=== PATIENT | female | born 1955 | race Caucasian/White ===

== ENCOUNTER 2018-05-18 19:03 | Emergency (ER) | payer OTHER ==
[~2018-05-18] VITALS: Ht 165.1 cm; Wt 81.7 kg
[2018-05-18] MEDS ORDERED: Zantac150 MG PO (19:42)
[2018-05-18] MEDS ORDERED: TRIA50 PO (19:42)
== END 2018-05-18 20:00 | disposition home or self-care (01) ==
LOC: ER 19:03
DX: G89.18 Other acute postprocedural pain (principal); M25.562 Pain in left knee; Z96.652 Presence of left artificial knee joint; Z87.891 Personal history of nicotine dependence; Z79.899 Other long term (current) drug therapy
CPT/HCPCS: 99283

== ENCOUNTER 2021-06-25 18:16 | Emergency (ER) | payer MEDICARE, OTHER ==
[~2021-06-25] VITALS: Ht 165.1 cm; Wt 81.7 kg
[~2021-06-25 18:16] MED LIST: TRIA50 PO; Zantac150 MG PO
[2021-06-25] MEDS ORDERED: Norco 5-325 Ta1 EACH PO (18:41)
== END 2021-06-25 18:52 | disposition home or self-care (01) ==
LOC: ER 18:16
DX: M54.50 Low back pain, unspecified (principal); G89.29 Other chronic pain; Z79.899 Other long term (current) drug therapy; Z87.891 Personal history of nicotine dependence
CPT/HCPCS: 99281; A9270

== ENCOUNTER → 2022-04-15 | Outpatient (CLI) | payer MEDICARE, OTHER ==
[~2022-04-15] MED LIST changes: +Norco 5-325 Ta1 EACH PO
== END | disposition home or self-care (01) ==
LOC: LAB SHORT 08:00
DX: R30.9 Painful micturition, unspecified (principal)
CPT/HCPCS: 87086

== ENCOUNTER 2024-03-22 06:24 | Day surgery (SDC) | payer MEDICARE, OTHER ==
--- NOTE | 2024-03-21 13:11 | NUR ---
ALLERGY/ADVERSE REACTION LIST UPDATED WITH PATIENT ON PHONE IN ANTICIPATION OF PLANNED SURGERY 03/22/24.
[~2024-03-22] VITALS: Ht 163 cm; Wt 95.2 kg
[2024-03-22] VITALS (18 sets, daily range): BP systolic 119–170; BP diastolic 62–97
[~2024-03-22 06:24] MED LIST changes: +Acetaminophen 500 MG Tab PO SCH; +CeFAZolin Sodium 2,000 MG in NS 100 ML IV SCH; +Chlorhexidine Mouth Care 15 ML UDC MT SCH; +Effexor Xr37.5 MG PO; +FURO40 PO; +HYDCHL25 PO; +LISI20 PO; +LYRICA PO; +Lactated Ringer's 1,000 ML IV SCH; +METO100 PO; +Norco 10-325 T1 EACH PO; +OMEP20ER PO; +ONDA4ODT MM; +Omeprazole 20 MG CapCR PO SCH; +OxyCODONE HCL 10 MG TABCR PO SCH; +PANT40 PO; +POTCHL20ER PO; +Ropivacaine 0.5% HCl/Pf 123.125 MG,EPINEPHrine HCL 0.25 MG,Ketorolac Tromethamine 15 MG... INFIL SCH
[2024-03-22] MEDS ORDERED: Tranexamic Acid 100 ML IV SCH (06:36)
[2024-03-22] MEDS ORDERED: FentaNYL Citrate 50 MCG/ML 2 ML Injection ONE ×2 (07:11→09:32)
[2024-03-22] MEDS ORDERED: Midazolam HCl 1MG / ML 2ML Vial ONE (07:11)
[2024-03-22] MEDS ORDERED: Lidocaine HCl 2% 20 ML MDV ONE (07:30)
[2024-03-22] MEDS ORDERED: propofoL 20 ML IV ONE (07:30)
[2024-03-22] MEDS ORDERED: Rocuronium Bromide 10 MG/ML 5ML Injection IV ONE (07:30)
--- NOTE | 2024-03-22 07:38 | NUR ---
History, Chart, Medications and Allergies reviewed before start of procedure. Patient up to Ambulate independently. Gait steady. Pre-Op teaching done. Pt verbalizes understanding. Patient confirms NPO status and agrees with scheduled surgery. Patient reports completing Chlorhexadine shower X1 prior to admission to hospital.
[2024-03-22] MEDS ORDERED: ePHEDrine Sulfate 50 MG/ML 1ML Injection ONE (08:03)
[2024-03-22] MEDS ORDERED: HYDROmorphone HCl/Pf 1MG SYR ONE ×3 (08:58→09:44)
[2024-03-22] MEDS ORDERED: Sugammadex Sodium 200 MG/2ML SDV (100 MG/ML) ONE (08:59)
[2024-03-22] MEDS ORDERED: Ondansetron HCl 2 MG / ML 2ML Vial ONE (09:02)
[2024-03-22] MEDS ORDERED: Dexamethasone Sod Phos 10 MG/ML 1ML VIAL ONE (09:02)
[2024-03-22] MEDS ORDERED: Ondansetron 4 MG SoluTab MM PRN (09:25)
[2024-03-22] MEDS ORDERED: Lactated Ringer's 1,000 ML IV SCH (09:30)
[2024-03-22] MEDS ORDERED: OxyCODONE HCL 5 MG TAB PO PRN ×2 (09:35→09:40)
[2024-03-22] MEDS ORDERED: Metoclopramide HCl 5MG / ML 2ML Vial IV PRN (09:35)
[2024-03-22] MEDS ORDERED: FLU VACC TS2024-25(6MOS UP)/PF 45 MCG/0.5 ML SYRINGE IM SCH (09:35)
[2024-03-22] MEDS ORDERED: Magnesium Hydroxide Conc 10 ML UDC PO PRN (09:35)
[2024-03-22] MEDS ORDERED: Ondansetron HCl 2 MG / ML 2ML Vial IV PRN (09:35)
[2024-03-22] MEDS ORDERED: DiphenhydrAMINE HCL 25 MG Cap PO PRN (09:40)
[2024-03-22] MEDS ORDERED: Prochlorperazine Edisylate 10 mg Vial IV PRN (09:40)
[2024-03-22] MEDS ORDERED: Promethazine HCl 25 MG Tab PO PRN (09:40)
[2024-03-22] MEDS ORDERED: Bisacodyl 10 MG Supp PR PRN (09:40)
--- NOTE | 2024-03-22 10:42 | NUR ---
PT ARRIVED TO THE ROOM AT 1020 FROM PACU. PT ALERT/ORIENTED AND PLEASANT UPON ARRIVAL. PT RATES HER PAIN AT 6/10 AND STATES 4/10 WOULD BE TOLERABLE. PT GIVEN OXYCODONE TO MANAGE PAIN, POLAR PACK IN PLACE. PT ABLE TO MOVE ALL EXTREMITIES. PT REPORTS SENSATION TO ALL EXTREMITIES. PT PROVIDED WITH AND EDUCATED TO USE THE CALL LIGHT. PT'S BELONGINGS ARE WITHIN REACH.
[2024-03-22] MEDS ORDERED: Ketorolac Tromethamine 15mg Vial IV SCH (12:00)
[2024-03-22] MEDS ORDERED: NS 250 ML IV PRN (14:55)
--- NOTE | 2024-03-22 15:58 | NUR ---
Pt. is awake in bed and welcomes my visit. Pt. is pleasant and quickly verbalized that she is a person of shaheen. Pt. displayed evidence of trust and engagement. Facilitated a life review and considered matters of shaheen and belief at length. Pt. verbalized prayer conscerns for a family member. Prayed with Pt. and also considered the needs of her family memeber. Pt. shook my hand and verbalized gratitude for the spiritual care visit.
[2024-03-22] MEDS ORDERED: CeFAZolin Sodium 2,000 MG in NS 100 ML IV SCH (16:00)
[2024-03-22] MEDS ORDERED: Acetaminophen 500 MG Tab PO SCH (16:00)
--- NOTE | 2024-03-22 18:03 | NUR ---
SHIFT SUMMARY PT IS POD#0 FROM [facility] [address] DR. BINGHAM. PAIN MANAGED WITH PO PAIN MEDICATION. PT WORKED WITH THERAPY TODAY BUT DID NOT CLEAR. PT TOLERATING PO AND VOIDING. VSS. PT GOT UP IN THE ROOM X1 WITHOUT ASSISTANCE BUT HAS OTHERWISE USED THE CALL LIGHT APPROPRIATELY. EDUCATION REGARDING CALL LIGHT USE AND FALL PREVENTION WAS REIFORCED, PT VERBALIZED UNDERSTANDING.
[2024-03-22] MEDS ORDERED: Docusate Sodium 100 MG Cap PO SCH (21:00)
[2024-03-22] MEDS ORDERED: Apixaban 5 MG Tab PO SCH (21:00)
[2024-03-23 05:23] VITALS: BP 146/63
--- NOTE | 2024-03-23 05:26 | NUR ---
SHIFT SUMMARY POD 1 R GLADIS PT ABLE TO REST DURING THE NIGHT. PAIN MANAGED PER EMAR. TOLERATING PO INTAKE, VOIDING. AQUACEL TO R HIP IS C/D/I. PT 1P SBA WITH FWW AND GB. DENIES N/T IN EXT'S. PLAN TO WORK WITH THERAPY TODAY AND THEN D/C HOME. VSS. NO OTHER CONCERNS AT THIS TIME, CALL LIGHT WITHIN REACH
[2024-03-23 07:47] VITALS: BP 131/73
[2024-03-23 08:13] LABS: BASOPHILS ABSOLUTE AUTO 0.02 K/mm3 (0.00-0.23); BASOPHILS PERCENT AUTO 0 % (0-2); EOSINOPHILS ABSOLUTE AUTO 0.01 K/mm3 (0.00-0.68); EOSINOPHILS PERCENT AUTO 0 % (0-6); Hematocrit 35.4 % (33.0-51.0); Hemoglobin 12.1 g/dL (11.5-16.0); IMMATURE GRAN ABSOLUTE AUTO 0.04 K/mm3 (0.00-0.10); IMMATURE GRAN PERCENT AUTO 0 % (0-1); LYMPHOCYTES ABSOLUTE AUTO 2.12 K/mm3 (0.84-5.20); LYMPHOCYTES PERCENT AUTO 21 % (21-46); MONOCYTES ABSOLUTE AUTO 0.96 K/mm3 (0.16-1.47); MONOCYTES PERCENT AUTO 9 % (4-13); Mean Corpuscular HGB 30.6 pg (26.0-34.0); Mean Corpuscular HGB Conc 34.2 g/dL (31.5-36.5); Mean Corpuscular Volume 90 fL (80-100); Mean Platelet Volume 9.3 fL (9.1-12.4); NEUTROPHILS ABSOLUTE AUTO 7.07 K/mm3 (1.96-9.15); NEUTROPHILS PERCENT AUTO 69 % (41-73); Platelet Count 189 K/mm3 (150-400); RDW Standard Deviation 42.6 fL (35.1-46.3); Red Blood Cell Count 3.95 M/mm3 (3.80-5.20); White Blood Cell Count 10.22 K/mm3 (4.00-11.30)
--- NOTE | 2024-03-23 08:35 | NUR ---
PT IS REFUSING MEDICATIONS AT THIS TIME. PT STS SHE HAS BEEN VOMITING X2 AFTER ODT ZOFRAN AND HAS GOTTEN UP BY HERSELF. PT STS "SORRY I DIDN'T CALL. I DIDN'T HAVE TIME." PT RE-EDUCATED ON IMPORTANCE OF CALLING FOR SBA AND PT VERBALIZES UNDERSTANDING OF THIS. PT REFUSING ALL MEDICATIONS AT THIS TIME, EVEN IV ANTI-EMETICS. PT STS "I DON'T WANT ANYTHING ELSE IN MY BODY RIGHT NOW." PT ENCOURAGED TO WORK WITH PHYSICAL THERAPY WHEN THEY COME IN AND PT STS THAT SHE WILL.
[2024-03-23 08:37] LABS: Calcium, Blood 9.1 mg/dL (8.5-10.1); Potassium, Blood 4.5 mmol/L (3.5-5.5)
--- NOTE | 2024-03-23 08:49 | NUR ---
PT TOLD PHYSICAL THERAPIST TO GIVE HER 30 MINUTES BEFORE SHE WILL BE READY AND FEELING BETTER TO DO THERAPY.
[2024-03-23] MEDS ORDERED: Potassium Chloride 20 MEQ TabCR PO SCH (09:00)
[2024-03-23] MEDS ORDERED: Lisinopril 20 MG Tab PO SCH (09:00)
[2024-03-23] MEDS ORDERED: Furosemide 40 MG Tab PO SCH (09:00)
[2024-03-23] MEDS ORDERED: Metoprolol Tartrate 50 MG Tab PO SCH (09:00)
--- NOTE | 2024-03-23 10:18 | NUR ---
PT WORKED WITH PT AND IS CLEARED. PT REFUSING ALL PO MEDICATION DUE TO INDIGESTION. PT EDUCATED ON REASON FOR MEDICATION AND IMPORTANT. PT VERBALIZES UNDERSTANDING BUT STILL INSISTENT ON NOT TAKING THEM. PT NOT WANTING ANY OTHER PRN MEDICATION OR WANTING TO REACH OUT TO DOCTOR. PT STS THAT SHE WILL TAKE HER ELIQUIS PRIOR TO LEAVING. STS SHE WANTS TO GO HOME AROUND 12PM TODAY. PT CURRENTLY LAYING IN BED ON HER L SIDE BECAUSE SHE IS MOST COMFORTABLE IN THAT POSITION. CALL LIGHT IN REACH.
--- NOTE | 2024-03-23 11:53 | NUR ---
PT NOT WANTING TO TAKE AM MEDICATIONS. PT REFUSING ANY OFFER OF PRN NAUSEA MEDICATION. PROVIDER MADE AWARE.
--- NOTE | 2024-03-23 13:30 | NUR ---
PT WAS ABLE AND WILLING TO TAKE HER DAILY ELIQUIS. PT NOT WANTING TO TAKE OTHER MORNING MEDICATIONS DUE TO INDIGESTION. PT TOOK ELIQUIS WITH SMALL BITES OF PUDDING. PT NOT WANTING TO D/C AT THIS POINT UNTIL SHE FEELS BETTER.
[2024-03-23] MEDS ORDERED: ELIQUIS2.5 MG PO (13:52)
[2024-03-23 15:03] VITALS: BP 164/95
--- NOTE | 2024-03-23 17:00 | NUR ---
DISCHARGE NOTE PT TO D/C HOME. ADEQUATE PAIN MEDICATION WITH PO MEDS. MARCEL PO INTAKE FAIR. CLEARED BY PHYSICAL THERAPY AND HAS VOIDED MULTIPLE TIMES. PT VERBALIZES UNDERSTANDING OF D/C INSTRUCTIONS. F/U WITH [facility] SCHEDULED. ESCORTED TO LOBBY VIA WHEELCHAIR. DAUGHTER TO GIVE RIDE HOME.
== END 2024-03-23 17:20 | disposition home or self-care (01) ==
LOC: ORSCMMR 06:24 → ORD 07:30 → ORSCMMR 07:30 → ORD 09:15 → ORSCMMR 09:15 → SURS 10:17 → ORSCMMR 03-23 17:20
PROVIDERS: Orthopaedic Surgery
PROC: 0SR90JZ Replacement of Right Hip Joint with Synthetic Substitute, Open Approach (ICD-10-PCS; principal; 2024-03-22 07:30)
DX: M16.11 Unilateral primary osteoarthritis, right hip (principal); I10 Essential (primary) hypertension; Z96.652 Presence of left artificial knee joint; Z87.891 Personal history of nicotine dependence; Z79.899 Other long term (current) drug therapy; K21.9 Gastro-esophageal reflux disease without esophagitis; E66.9 Obesity, unspecified; Z68.35 Body mass index [BMI] 35.0-35.9, adult
CPT/HCPCS: 36415; 72170; 80048; 85025; 97110; 97116; 97162; 97530; A6010; A9270; C1713; C1776; J0171; J0690; J0735; J1100; J1171; J1885; J2250; J2405; J2704; J2795; J3010; J7050; J7120

== ENCOUNTER 2024-04-11 17:37 | Inpatient (IN) | payer MEDICARE, OTHER ==
[~2024-04-11] VITALS: Ht 165.1 cm; Wt 96.0 kg
[~2024-04-11 17:37] MED LIST changes: -Acetaminophen 500 MG Tab PO SCH; -CeFAZolin Sodium 2,000 MG in NS 100 ML IV SCH; -Chlorhexidine Mouth Care 15 ML UDC MT SCH; +ELIQUIS2.5 MG PO; -Lactated Ringer's 1,000 ML IV SCH; -Omeprazole 20 MG CapCR PO SCH; -OxyCODONE HCL 10 MG TABCR PO SCH; -Ropivacaine 0.5% HCl/Pf 123.125 MG,EPINEPHrine HCL 0.25 MG,Ketorolac Tromethamine 15 MG... INFIL SCH
[2024-04-11 17:55] VITALS: BP 157/78
--- NOTE | 2024-04-11 17:56 | NUR ---
PT ARRIVES TO RM 222 VIA WC. PT DIRECT ADMIT BY DR BINGHAM. PT HAD R GLADIS ELECTIVE SURGERY EARLIER THIS MONTH. PT WAS GETTING INTO TAXI AFTER GOING TO PHYSICAL THERAPY AND FELT A "POP" SOUND IN HER R HIP. YESTERDAY, SHE FOLLOWED-UP WITH [facility] WITH OUTPATIENT XRAY AND CT SCAN, AND WAS SENT HERE FOR FURTHER TREATMENT. PT STS HER R HIP IS "CRACKED." PT A/OX4, PAIN 11/24. CALL LIGHT IN REACH.
[2024-04-11] MEDS ORDERED: Ondansetron 4 MG SoluTab SL PRN (18:40)
[2024-04-11] MEDS ORDERED: HYDROcodone 5-APAP 325 TAB PO PRN (18:40)
[2024-04-11 18:42] LABS: BASOPHILS ABSOLUTE AUTO 0.02 K/mm3 (0.00-0.23); BASOPHILS PERCENT AUTO 0 % (0-2); EOSINOPHILS ABSOLUTE AUTO 0.14 K/mm3 (0.00-0.68); EOSINOPHILS PERCENT AUTO 3 % (0-6); Hematocrit 34.6 % (33.0-51.0); Hemoglobin 11.3 g/dL (11.5-16.0); IMMATURE GRAN ABSOLUTE AUTO 0.02 K/mm3 (0.00-0.10); IMMATURE GRAN PERCENT AUTO 0 % (0-1); LYMPHOCYTES ABSOLUTE AUTO 1.91 K/mm3 (0.84-5.20); LYMPHOCYTES PERCENT AUTO 39 % (21-46); MONOCYTES ABSOLUTE AUTO 0.45 K/mm3 (0.16-1.47); MONOCYTES PERCENT AUTO 9 % (4-13); Mean Corpuscular HGB 29.9 pg (26.0-34.0); Mean Corpuscular HGB Conc 32.7 g/dL (31.5-36.5); Mean Corpuscular Volume 92 fL (80-100); Mean Platelet Volume 8.8 fL (9.1-12.4); NEUTROPHILS ABSOLUTE AUTO 2.37 K/mm3 (1.96-9.15); NEUTROPHILS PERCENT AUTO 48 % (41-73); Platelet Count 297 K/mm3 (150-400); RDW Coefficient Variation 13.2 % (11.7-14.2); RDW Standard Deviation 44.5 fL (35.1-46.3); Red Blood Cell Count 3.78 M/mm3 (3.80-5.20); White Blood Cell Count 4.91 K/mm3 (4.00-11.30)
[2024-04-11 19:04] LABS: Bun/Creatinine Ratio 27.2 (12.0-20.0); Calcium, Blood 9.2 mg/dL (8.5-10.1); Creatinine, Blood 0.85 mg/dL (0.40-1.00); Potassium, Blood 3.9 mmol/L (3.5-5.5)
[2024-04-11 19:42] VITALS: BP 171/84
[2024-04-12] VITALS (18 sets, daily range): BP systolic 122–180; BP diastolic 57–87
[2024-04-12] MEDS ORDERED: HYDROcodone 5-APAP 325 TAB PO PRN ×2 (00:05→12:50)
--- NOTE | 2024-04-12 04:31 | NUR ---
SHIFT SUMMARY S/P R HIP FX. NO ACUTE CHANGES OVERNIGHT. VSS. NPO. VOIDING. PT REPORTS PAIN TOLERABLE, MEDICATED PER EMAR. PT NWB ON RLE, PT MINIMALLY COMPLIANT c AMBULATION ORDERS. ANTICIPATED SURGERY LATER TODAY. CALL LIGHT IN REACH, BED IN LOWEST POSITION, WILL REPORT TO DAY RN.
[2024-04-12] MEDS ORDERED: Pantoprazole Sodium 40 MG Tab PO SCH (06:00)
[2024-04-12] MEDS ORDERED: Metoprolol Succinate 50 MG TABCR PO SCH (09:00)
[2024-04-12] MEDS ORDERED: Lisinopril 20 MG Tab PO SCH (09:00)
[2024-04-12] MEDS ORDERED: Furosemide 40 MG Tab PO PRN (12:35)
[2024-04-12] MEDS ORDERED: Ondansetron HCl 2 MG / ML 2ML Vial IV PRN (12:40)
[2024-04-12] MEDS ORDERED: Metoclopramide HCl 5MG / ML 2ML Vial IV PRN (12:40)
[2024-04-12] MEDS ORDERED: Magnesium Hydroxide Conc 10 ML UDC PO PRN (12:45)
[2024-04-12] MEDS ORDERED: DiphenhydrAMINE HCL 25 MG Cap PO PRN (12:45)
[2024-04-12] MEDS ORDERED: Promethazine HCl 25 MG Tab PO PRN (12:45)
[2024-04-12] MEDS ORDERED: TraMADol HCl 50 MG Tab PO PRN (12:45)
[2024-04-12] MEDS ORDERED: Lactated Ringer's 1,000 ML IV SCH ×2 (12:45→12:55)
[2024-04-12] MEDS ORDERED: FLU VACC TS2024-25(6MOS UP)/PF 45 MCG/0.5 ML SYRINGE IM SCH (12:45)
[2024-04-12] MEDS ORDERED: Bisacodyl 10 MG Supp PR PRN (12:50)
[2024-04-12] MEDS ORDERED: Prochlorperazine Edisylate 10 mg Vial IV PRN (12:50)
[2024-04-12] MEDS ORDERED: OxyCODONE HCL 5 MG TAB PO PRN ×2 (12:50)
[2024-04-12] MEDS ORDERED: Tranexamic Acid 1,000 MG in NS 100 ML IV SCH (12:55)
[2024-04-12] MEDS ORDERED: Ropivacaine 0.5% HCl/Pf 123.125 MG,EPINEPHrine HCL 0.25 MG,Ketorolac Tromethamine 15 MG... INFIL SCH (13:05)
[2024-04-12] MEDS ORDERED: CeFAZolin Sodium 2,000 MG in NS 100 ML IV SCH ×2 (13:25→13:40)
[2024-04-12] MEDS ORDERED: Cefazolin 2000MG/Dextrose,ISO 50 ML IV PRN (13:35)
--- NOTE | 2024-04-12 14:20 | NUR ---
PT TAKEN TO DAY SURGERY AT THIS TIME.
--- NOTE | 2024-04-12 14:41 | NUR ---
IV SITE RIGHT WRIST DRESSING D&I/IVF ATTACHED/PATENT.
[2024-04-12] MEDS ORDERED: CeFAZolin Sodium 2,000 MG VIAL ONE (14:45)
[2024-04-12] MEDS ORDERED: Famotidine 10 MG/ML 2ML Vial IV ONE (15:40)
[2024-04-12] MEDS ORDERED: FentaNYL Citrate 50 MCG/ML 2 ML Injection ONE ×2 (15:44→19:40)
[2024-04-12] MEDS ORDERED: propofoL 20 ML IV ONE (15:44)
[2024-04-12] MEDS ORDERED: Rocuronium Bromide 10 MG/ML 5ML Injection IV ONE (15:46)
[2024-04-12] MEDS ORDERED: Morphine Sulfate/PF 1 MG/ML 10MLVIAL ONE (15:46)
[2024-04-12] MEDS ORDERED: Ondansetron HCl 2 MG / ML 2ML Vial ONE (15:50)
[2024-04-12] MEDS ORDERED: Acetaminophen 500 MG Tab PO SCH (16:00)
[2024-04-12] MEDS ORDERED: Albuterol 2.5 MG/3 ML VIAL INH PRN (16:00)
[2024-04-12] MEDS ORDERED: Morphine Sulfate 4 MG/1 ML Injection IV PRN (16:05)
[2024-04-12] MEDS ORDERED: FentaNYL Citrate 50 MCG/ML 2 ML Injection IV PRN (16:05)
[2024-04-12] MEDS ORDERED: Droperidol 5 mg/2 ml Vial IV PRN (16:05)
[2024-04-12] MEDS ORDERED: ePHEDrine Sulfate 50 MG/ML 1ML Injection ONE (16:30)
[2024-04-12] MEDS ORDERED: Phenylephrine HCl 100 MCG/ML-NS 10MLSYR (1MG/10ML) ONE (17:08)
[2024-04-12] MEDS ORDERED: Sugammadex Sodium 200 MG/2ML SDV (100 MG/ML) ONE (18:04)
[2024-04-12] MEDS ORDERED: Morphine Sulfate 4 MG/1 ML Injection ONE ×2 (19:04→19:12)
--- NOTE | 2024-04-12 20:10 | NUR ---
ARRIVAL TO UNIT PT ARRIVED TO UNIT FROM PACU VIA BED. VSS, O2 SAT >90% ON 2L VIA NC. TOLERATING MIN PO INPUT, DENIES N/V. MAJOR DRESSING TO R HIP C/D/I, POLAR PACK IN USE. PT REPORTS PAIN TOLERABLE, HEEL FINISHER REPORTS PT INCREASINGLY PAINFUL POST-OP, MEDICATED PER EMAR. PT REPORTS "THE SENSATION LIKE I NEED TO PEE" BUT DENIES AMBULATION AT THIS TIME R/T PAIN. PUREWICK PLACED PER PT REQUEST. AWAITING FIRST POST-OP VOID/AMB. ORIENTED TO UNIT, CALL LIGHT IN REACH.
[2024-04-12] MEDS ORDERED: Docusate Sodium 100 MG Cap PO SCH (21:00)
[2024-04-13] MEDS ORDERED: CeFAZolin Sodium 2,000 MG in NS 100 ML IV SCH
[2024-04-13 03:33] VITALS: BP 128/60
[2024-04-13 05:20] LABS: BASOPHILS ABSOLUTE AUTO 0.01 K/mm3 (0.00-0.23); BASOPHILS PERCENT AUTO 0 % (0-2); EOSINOPHILS ABSOLUTE AUTO 0.07 K/mm3 (0.00-0.68); EOSINOPHILS PERCENT AUTO 1 % (0-6); IMMATURE GRAN ABSOLUTE AUTO 0.03 K/mm3 (0.00-0.10); IMMATURE GRAN PERCENT AUTO 1 % (0-1); LYMPHOCYTES ABSOLUTE AUTO 1.21 K/mm3 (0.84-5.20); LYMPHOCYTES PERCENT AUTO 20 % (21-46); MONOCYTES PERCENT AUTO 8 % (4-13); Mean Corpuscular HGB 29.7 pg (26.0-34.0); Mean Corpuscular HGB Conc 32.1 g/dL (31.5-36.5); Mean Corpuscular Volume 92 fL (80-100); Mean Platelet Volume 8.9 fL (9.1-12.4); NEUTROPHILS ABSOLUTE AUTO 4.34 K/mm3 (1.96-9.15); NEUTROPHILS PERCENT AUTO 71 % (41-73); Platelet Count 235 K/mm3 (150-400); RDW Coefficient Variation 13.3 % (11.7-14.2); RDW Standard Deviation 45.1 fL (35.1-46.3); Red Blood Cell Count 3.03 M/mm3 (3.80-5.20); White Blood Cell Count 6.16 K/mm3 (4.00-11.30)
[2024-04-13 05:42] LABS: Bun/Creatinine Ratio 23.7 (12.0-20.0); Calcium, Blood 8.1 mg/dL (8.5-10.1); Creatinine, Blood 0.8 mg/dL (0.40-1.00); Potassium, Blood 4.3 mmol/L (3.5-5.5)
--- NOTE | 2024-04-13 06:08 | NUR ---
SHIFT SUMMARY POD 1 R ORIF. NO ACUTE CHANGES OVERNIGHT. VSS, CONT BIOX IN USE. TOLERATING MIN ORALS. AMBULATES USING FWW c GB & 1 PERSON ASSIST TO STAND/PIVOT TO BSC. MIN URINE OUTPUT. PUREWICK & ATTENS IN PLACE PER PT REQUEST. IV ABX/FLUIDS INFUSING PER EMAR. PT REPORTS INCREASED PAIN, POLAR PACK IN USE, MEDICATED PER EMAR. MAJOR DRESSING C/D/I, FUNCTIONING PROPERLY. ANTICIPATED TO WORK c PHYSCIAL THERAPY. D/C SNF VS . PT RESTING IN BED. CALL LIGHT IN REACH, WILL REPORT TO DAY RN.
[2024-04-13 07:31] VITALS: BP 117/51
[2024-04-13] MEDS ORDERED: Apixaban 5 MG Tab PO SCH (09:00)
[2024-04-13] MEDS ORDERED: Clindamycin HCl 150 MG Cap PO SCH (09:00)
[2024-04-13 14:11] VITALS: BP 143/66
--- NOTE | 2024-04-13 16:39 | NUR ---
pt. is awake in be and displays evidence of acute pain. Pt. verbalizes that she recognizes this chaplian from a previous visit. Facilitate a short life review and pray for the Pt. Pt. verbalized gratitude for the spiritual care visit. This synthetic staple extruder reported Pts. pain to the staff.
--- NOTE | 2024-04-13 17:53 | NUR ---
SHIFT SUMMARY PT IS POD1 FOR R HIP ORIF, MAJOR DRAIN C/D/I. VSS. PT REPORTS HIGH PAIN SCORE AFTER BEING MEDICATED W/ PAIN MEDS PER EMAR. CRYO APPLIED TO R HIP AND REPOSITIONED PT FOR COMFORT. CAP REFILL IN R TOES 2 SECS, PT ABLE TO WIGGLE TOES. AMBULATING 1 ASST W/ FWW AND GB. PT VOIDING CONTINENTLY BUT REQUESTING TO USE ATTENDS AND PURWICK, EDUCATED PT ON IMPORTANCE OF AMBULATING AND USING BSC/BR. PT WISHING TO GO HOME W/ HH DAUGHTER CAN HELP AT HOME. CALL LIGHT IN REACH.
[2024-04-13 19:06] VITALS: BP 148/66
--- NOTE | 2024-04-14 04:49 | NUR ---
SHIFT SUMMARY POD2 RIGHT HIP ORIF. PAIN MANAGED USING NPIS AND PER EMAR. PT REQUESTED PRN ANALGESICS AROUND THE CLOCK DUE TO SEVERE PAIN THAT EXACERBATES WITH MOVEMENT. UP TO BATHROOM; 1P USING FWW AND GB. MAJOR DRESSING PATENT & C/D/I OVERNIGHT. A&OX4. PLEASANT & COOPERATIVE WITH CARES. ABLE TO VOICE NEEDS; USED CALL LIGHT APPROPRIATELY OVERNIGHT. PT VOICED UNDERSTANDING; DENIES QUESTIONS/CONCERNS AT THIS TIME.
[2024-04-14 05:20] VITALS: BP 147/79
[2024-04-14 07:30] VITALS: BP 134/60
--- NOTE | 2024-04-14 13:27 | NUR ---
DISCHARGE PT EDUCATED ON AND RECEIVED PRINTED DC INSTRUCTIONS AND VERBALIZED AN UNDERSTANDING. EDUCATED TO KEEP MAJOR DRESSING IN PLACE FOR 5 MORE DAYS AND THEN AT FOLLOW UP, PROVIDER TO CHANGE DRESSING. PT STATED SHE ALREADY WAS GOING TO CALL ON THURSDAY FOR APPT. PT GIVEN HARD RX FOR NORCO + CLINDAMYCIN. IV DC'D. PT STATES RIDE HOME WILL BE HERE NO LATER THAN 1600.
[2024-04-14 15:40] VITALS: BP 155/84
== END 2024-04-14 15:48 | disposition home health service (06) | DRG 481 ==
LOC: SURS 17:37
PROVIDERS: ADMIT Orthopaedic Surgery
PROC: 0QS604Z Reposition Right Upper Femur with Internal Fixation Device, Open Approach (ICD-10-PCS; principal; 2024-04-11)
DX: S72.001A Fracture of unspecified part of neck of right femur, initial encounter for closed fracture (principal); M97.01XA Periprosthetic fracture around internal prosthetic right hip joint, initial encounter; W18.30XA Fall on same level, unspecified, initial encounter; I10 Essential (primary) hypertension; Z79.899 Other long term (current) drug therapy; Z96.641 Presence of right artificial hip joint; Z96.652 Presence of left artificial knee joint; Z87.891 Personal history of nicotine dependence
CPT/HCPCS: 36415; 72170; 80048; 85025; 94760; 97110; 97116; 97161; 97165; 97530; 97535; A9270; C1776; J0171; J0690; J0735; J1885; J2270; J2274; J2371; J2405; J2704; J2795; J3010; J7120

== ENCOUNTER → 2024-08-11 | Outpatient (CLI) | payer MEDICARE, OTHER | LOC: LAB 16:52 → LAB SHORT 16:52 | DX: R35.0 Frequency of micturition (principal) | CPT/HCPCS: 87086 ==